=== PATIENT | female | born 1980 | race Caucasian/White ===

== ENCOUNTER → 2021-03-04 | Outpatient (CLI) | payer BC ==
--- NOTE | 2021-03-04 16:45 | RAD ---
EXAMINATION: US PELVIS COMPLETE INDICATION: 41 years, Female, menorrhagia, recent breast cancer diagnosis with tamoxifen. COMPARISON: None TECHNIQUE: Transabdominal ultrasound of the pelvis was performed with grayscale, spectral, and color doppler imaging. FINDINGS: UTERUS: Position: Anteverted Measures: 10.1 x 5.7. x 5.6 cm. Uterine/Endometrial Morphology: Unremarkable. Endometrial Thickness: 1.3 cm. RIGHT OVARY/ADNEXA: Measures: 2.9 x 2.6 x 2.6 cm. Right Ovarian Morphology: Unremarkable. Right Ovarian Color And Spectral Doppler Flow: Normal. LEFT OVARY/ADNEXA: Measures: 2.9 x 2.3 x 1.7 cm. Left Ovarian Morphology: Unremarkable. Left Ovarian Color And Spectral Doppler Flow: Normal. OTHER: Fluid/Cul-De-Sac: No pelvic free fluid IMPRESSION: Thickened endometrium measures up to 1.3 cm, greater than expected in patient's taking tamoxifen medi cation. Differential consideration includes endometrial hyperplasia versus malignancy. Recommend dire ct visualization. Electronically signed by: Mariluz Hagan MD (03/04/2021 4:43 PM) [id number]
== END ==
LOC: US 15:34
PROVIDERS: ATTEND Nurse Practitioner Women's Health
DX: R93.89 Abnormal findings on diagnostic imaging of other specified body structures (principal); C50.919 Malignant neoplasm of unspecified site of unspecified female breast
CPT/HCPCS: 76856